=== PATIENT | male | born 1990 ===

== ENCOUNTER 2016-10-01 18:26 | Emergency (ER) | payer OTHER ==
[2016-10-01 18:37] VITALS: BP 132/79; PULSE 94; RESP 16; TEMP 98.5; O2SAT 100
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
== END 2016-10-01 19:54 | disposition home or self-care (01) ==
LOC: H.ER 18:26
DX: S61.201A Unspecified open wound of left index finger without damage to nail, initial encounter (principal); W26.8XXA Contact with other sharp object(s), not elsewhere classified, initial encounter; Y99.0 Civilian activity done for income or pay

== ENCOUNTER 2016-10-30 23:07 | Emergency (ER) | payer OTHER ==
[2016-10-30 23:23] VITALS: BP 139/54; PULSE 63; RESP 16; TEMP 98.2; O2SAT 100
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
[2016-10-31] MEDS ORDERED: Oxycodone/Acetaminophen 5/325 mg Tab ONE (01:01)
[2016-10-31] MEDS ORDERED: Oxycodone/Acetaminophen 5/325 mg Tab PO STA (01:05)
--- NOTE | 2016-10-31 10:02 | RAD ---
PROCEDURE: Right Hand Radiographs. HISTORY: trauma attn fith digit COMPARISON: None. FINDINGS: BONES: Bone alignment and mineralization are normal. There is no acute fracture or bone destruction. JOINTS: Normal. SOFT TISSUES: Normal. OTHER FINDINGS: None. IMPRESSION: No acute fracture or dislocation.
== END 2016-10-31 02:25 | disposition home or self-care (01) ==
LOC: H.ER 23:07
DX: S69.91XA Unspecified injury of right wrist, hand and finger(s), initial encounter (principal); W22.8XXA Striking against or struck by other objects, initial encounter; Y92.89 Other specified places as the place of occurrence of the external cause

== ENCOUNTER 2017-03-27 13:22 | Emergency (ER) | payer BC, OTHER ==
[2017-03-27 13:29] VITALS: BP 135/87; PULSE 93; RESP 20; TEMP 98.4; O2SAT 100
--- NOTE | 2017-03-27 13:46 | ED PDOC ---
HPI: CCC, URI, Sore Throat Time Seen by Provider: 03/27/17 13:24 Chief Complaint (Nursing): Cough, Cold, Congestion Chief Complaint (Provider): Cough, cold, congestion History Per: Patient History/Exam Limitations: no limitations Onset/Duration Of Symptoms: Days (x4 weeks) Current Symptoms Are (Timing): Still Present Associated Symptoms: Cough (productive), Sputum (green) Ear Symptoms: Bilateral: None Severity: Mild Pain Scale Rating Of: 3 Additional Complaint(s): Peterson Carvalho is a 26 year old male, with no past medical history, who presents to the emergency department complaining of a productive cough with green sputum and chest congestion onset for 4 weeks. Patient states the chest hurts when he coughs. He took [id number] medications with no improvement of symptoms. He denies any fever, chills, nausea, or vomit. No further medical complaints. PMD: None provided. Past Medical History Reviewed: Historical Data, Nursing Documentation, Vital Signs Vital Signs: Last Vital Signs Temp 98.4 F 03/27/17 13:27 Pulse 93 H 03/27/17 13:27 Resp 20 03/27/17 13:27 BP 135/87 03/27/17 13:27 Pulse Ox 100 03/27/17 13:50 - Medical History PMH: Kidney Stones - Surgical History Surgical History: Tonsillectomy - Family History Family History: States: Unknown Family Hx - Social History Current smoker - smoking cessation education provided: No Alcohol: Social Drugs: Cannabis - Immunization History Hx Tetanus Toxoid Vaccination: Yes Hx Influenza Vaccination: No Hx Pneumococcal Vaccination: No - Home Medications Home Medications: Ambulatory Orders Medication Instructions Recorded Cephalexin [Keflex] 500 mg PO BID #10 capsule 11/14/15 Sulfamethoxazole/Trimethoprim 1 tab PO BID #10 tab 11/14/15 [Bactrim DS 800 mg-160 mg] Naproxen [Naprosyn] 500 mg PO BID PRN #20 tablet 08/24/16 Tamsulosin [Flomax] 0.4 mg PO DAILY #21 cap 08/24/16 Ibuprofen [Motrin] 400 mg PO Q6 #30 tab 10/31/16 Methylprednisolone [Medrol Dose 4 mg PO DAILY #21 mg 03/27/17 Pack (21 tabs)] Promethazine HCl/Codeine 5 ml PO HS #80 ml 03/27/17 [Prometh-Codein 6.25-10 mg/5 ml] - Allergies Allergies/Adverse Reactions: Allergies Allergy/AdvReac Type Severity Reaction Status Date / Time No Known Allergies Allergy Verified 10/30/16 23:19 Review of Systems ROS Statement: Except As Marked, All Systems Reviewed And Found Negative Constitutional: Negative for: Fever, Chills ENT: Positive for: Nose Congestion Respiratory: Positive for: Cough (productive), Sputum (green) Gastrointestinal: Negative for: Nausea, Vomiting Physical Exam - Reviewed Nursing Documentation Reviewed: Yes Vital Signs Reviewed: Yes - Physical Exam Appears: Positive for: Well, Non-toxic, No Acute Distress Head Exam: Positive for: ATRAUMATIC, NORMAL INSPECTION, NORMOCEPHALIC Skin: Positive for: Normal Color, Warm, Dry Eye Exam: Positive for: EOMI, Normal appearance, PERRL ENT: Positive for: Normal ENT Inspection Neck: Positive for: Normal, Painless ROM, Supple Cardiovascular/Chest: Positive for: Regular Rate, Rhythm. Negative for: Murmur Respiratory: Positive for: Normal Breath Sounds. Negative for: Respiratory Distress Extremity: Positive for: Normal ROM Neurologic/Psych: Positive for: Alert, Oriented - ECG O2 Sat by Pulse Oximetry: 100 (RA) Pulse Ox Interpretation: Normal Medical Decision Making Medical Decision Making: Initial Impression: URI Initial Plan: --Chest two views (PA/LAT) [RAD] --reevaluation CXR: NAD, as read by [facility] ~ Scribe Attestation: Documented by Froy Eaton, acting as a scribe for Joann Francis PA-C. Provider Scribe Attestation: All medical record entries made by the Scribe were at my direction and personally dictated by me. I have reviewed the chart and agree that the record accurately reflects my personal performance of the history, physical exam, medical decision making, and the department course for this patient. I have also personally directed, reviewed, and agree with the discharge instructions and disposition. Disposition - Clinical Impression Clinical Impression: Upper respiratory infection - Patient ED Disposition Is Patient to be Admitted: No - Disposition Disposition: Routine/Home Disposition Time: 14:40 Condition: STABLE Prescriptions: Methylprednisolone [Medrol Dose Pack (21 tabs)] 4 mg PO DAILY #21 mg Promethazine HCl/Codeine [Prometh-Codein 6.25-10 mg/5 ml] 5 ml PO HS #80 ml Instructions: Upper Respiratory Infection (ED) Forms: [employer] ([place])
--- NOTE | 2017-03-27 14:53 | RAD ---
HISTORY: cough x 1 m COMPARISON: No prior. TECHNIQUE: Chest PA and lateral FINDINGS: LUNGS: No active pulmonary disease. PLEURA: No significant pleural effusion identified. No pneumothorax apparent. CARDIOVASCULAR: Normal. OSSEOUS STRUCTURES: No significant abnormalities. VISUALIZED UPPER ABDOMEN: Normal. OTHER FINDINGS: None. IMPRESSION: No active disease.
== END 2017-03-27 14:20 | disposition home or self-care (01) ==
LOC: H.ER 13:22
DX: J06.9 Acute upper respiratory infection, unspecified (principal)